=== PATIENT | female | born 1950 | race Caucasian/White ===

== ENCOUNTER 2017-11-03 14:35 | Emergency (ER) | payer MEDICARE ==
[~2017-11-03] VITALS: Ht 170.2 cm; Wt 63.6 kg
[~2017-11-03 14:35] MED LIST: AMLO5TAB4 PO; ATOR40TA3 PO; CARB-87 PO; LOSA1TAB39 PO; METF500T PO; MIRA50TA PO; RASA1TAB PO; ROPI4TAB3 PO
[2017-11-03 16:22] LABS: BASOPHILS % (AUTO) 0.5 % (0-1); EOSINOPHILS # (AUTO) 0.1 X10'3 (0-0.9); EOSINOPHILS % (AUTO) 2.2 % (0-6); HEMATOCRIT 40.1 % (35.0-45.0); LYMPHOCYTES # (AUTO) 1.5 X10'3 (1.1-4.8); LYMPHOCYTES % (AUTO) 30.1 % (21-51); MEAN CORPUSCULAR HEMOGLOBIN 31.2 PG (27.0-31.0); MEAN CORPUSCULAR HGB CONC 34.9 % (33.0-36.5); MEAN CORPUSCULAR VOLUME 89.5 FL (78-98); MONOCYTES # (AUTO) 0.4 X10'3 (0-0.9); MONOCYTES % (AUTO) 7.4 % (2-12); NEUTROPHILS % (AUTO) 59.8 % (42-75); PLATELET COUNT 223 X10'3 (140-440); RED BLOOD COUNT 4.47 X10'6 (4.20-5.60); RED CELL DISTRIBUTION WIDTH 13.1 % (11.5-14.5)
[2017-11-03 16:36] LABS: ALANINE AMINOTRANSFERASE 11 U/L (12-78); ALBUMIN 4.3 G/DL (3.4-5.0); ALBUMIN/GLOBULIN RATIO 1.2 (1.1-1.5); ALKALINE PHOSPHATASE 73 IU/L (46-116); ANION GAP 9 (8-16); ASPARTATE AMINO TRANSFERASE 21 U/L (10-37); BILIRUBIN,TOTAL 1.2 MG/DL (0.1-1.0); BLOOD UREA NITROGEN 21 MG/DL (7-18); BUN/CREATININE RATIO 24.1 (6.6-38.0); CALCIUM 9.2 MG/DL (8.5-10.1); CHLORIDE 102 MMOL/L (99-107); CREATININE 0.87 MG/DL (0.40-0.90); ETHANOL < 0.010 GM/DL (0.0-0.010); GLUCOSE 108 MG/DL (70-104); POTASSIUM 3.3 MMOL/L (3.5-5.1); SODIUM 142 MMOL/L (135-145); TOTAL CARBON DIOXIDE 31.3 MMOL/L (24-32); TOTAL PROTEIN 7.8 G/DL (6.4-8.2); eGFR 65 ML/MIN
[2017-11-03 16:59] LABS: CLARITY,URINE CLEAR (Clear); COLOR,URINE YELLOW (Yellow); GLUCOSE, URINE NEGATIVE (Neg); KETONES,URINE NEGATIVE (Neg); LEUKOCYTE ESTERASE ,URINE NEGATIVE (Neg); NITRITES, URINE NEGATIVE (Neg); OCCULT BLOOD,URINE NEGATIVE (Neg); PROTEIN,URINE NEGATIVE (Neg); UA COLLECTION TYPE STRAIGHT CATH; UROBILINOGEN,URINE 0.2 E.U/dL (0.2-1.0)
[2017-11-03 17:10] LABS: URINE AMPHETAMINE SCREEN NEGATIVE (Neg); URINE BARBITUATE SCREEN NEGATIVE (Neg); URINE BENZODIAZEPINES SCREEN NEGATIVE (Neg); URINE CANNABINOID SCREEN NEGATIVE (Neg); URINE COCAINE SCREEN NEGATIVE (Neg); URINE METHADONE SCREEN NEGATIVE (Neg); URINE OPIATE SCREEN NEGATIVE (Neg); URINE PHENCYCLIDINE SCREEN NEGATIVE (Neg)
[2017-11-03] MEDS ORDERED: LORazepam 1 MG tablet PO ONE (17:15)
[2017-11-03 21:14] VITALS: BP 163/63
[2017-11-03] MEDS ORDERED: ROTI1PAT10 TOP (21:33)
[2017-11-03] MEDS ORDERED: ATOR20TA66 PO (21:33)
[2017-11-03] MEDS ORDERED: METF500T PO (21:50)
[2017-11-03] MEDS ORDERED: CARB1TAB23 PO (21:50)
[2017-11-03] MEDS ORDERED: RASA1TAB PO (21:50)
== END 2017-11-03 21:15 | disposition home or self-care (01) ==
LOC: ER 14:36
DX: F41.9 Anxiety disorder, unspecified (principal); I10 Essential (primary) hypertension; E11.9 Type 2 diabetes mellitus without complications; Z88.1 Allergy status to other antibiotic agents; Z79.84 Long term (current) use of oral hypoglycemic drugs; Z79.899 Other long term (current) drug therapy
CPT/HCPCS: 36415; 80053; 80305; 80320; 81003; 85025; 99284

== ENCOUNTER 2017-11-03 20:05 | Inpatient (IN) | payer MEDICARE ==
[~2017-11-03] VITALS: Ht 167.6 cm
[2017-11-03] MEDS ORDERED: ROTI1PAT10 TOP (21:33)
[2017-11-03] MEDS ORDERED: ATOR20TA66 PO (21:33)
[2017-11-03] MEDS ORDERED: METF500T PO (21:50)
[2017-11-03] MEDS ORDERED: RASA1TAB PO (21:50)
[2017-11-03] MEDS ORDERED: CARB1TAB23 PO (21:50)
[2017-11-03 23:00] VITALS: BP 158/78
[2017-11-04] MEDS ORDERED: LORazepam 0.5 MG tablet PO ONE (01:00)
[2017-11-04] MEDS: metFORMIN 500mg tablet PO SCH ×2 (07:53→17:46)
[2017-11-04] MEDS: losartan 50mg tablet PO SCH (07:53)
[2017-11-04] MEDS: amLODIPine 5mg tablet PO SCH ×2 (07:53→20:03)
[2017-11-04] MEDS: HYDROchlorothiazide 25mg tablet PO SCH (07:53)
[2017-11-04 08:00] VITALS: BP 134/79
[2017-11-04] MEDS ORDERED: AZILECT 1 MG PO SCH (08:00)
[2017-11-04 08:08] LABS: HEMOGLOBIN A1C 5.9 % (4.5-6.2)
[2017-11-04 08:14] LABS: CHOL/HDL RATIO 1.8 (0.00-4.99); CHOLESTEROL 125 MG/DL (0-200); HDL CHOLESTEROL 70 MG/DL (35-60); LDL CHOLESTEROL 45 MG/DL (50-100); TRIGLYCERIDES 40 MG/DL (20-135)
[2017-11-04] MEDS: MIRABEGRON PO SCH (08:46)
[2017-11-04] MEDS: AZILECT 1 MG PO SCH (08:46)
[2017-11-04] MEDS: carbidoba-levodopa 25-100mg tablet PO SCH ×4 (08:46→20:04)
[2017-11-04] MEDS: NEUPRO 4 MG TOP SCH (08:47)
[2017-11-04 19:45] VITALS: BP 108/60
[2017-11-04] MEDS: temazepam 15mg capsule PO SCH (20:03)
[2017-11-04] MEDS: atorvastatin 20mg tablet PO SCH (20:03)
[2017-11-05] MEDS: AZILECT 1 MG PO SCH (07:58)
[2017-11-05] MEDS: MIRABEGRON PO SCH (07:58)
[2017-11-05] MEDS: HYDROchlorothiazide 25mg tablet PO SCH (07:59)
[2017-11-05] MEDS: carbidoba-levodopa 25-100mg tablet PO SCH ×4 (07:59→21:18)
[2017-11-05] MEDS: losartan 50mg tablet PO SCH (07:59)
[2017-11-05] MEDS: metFORMIN 500mg tablet PO SCH (07:59)
[2017-11-05 08:00] VITALS: BP 150/77
[2017-11-05] MEDS: NEUPRO 4 MG TOP SCH (08:03)
[2017-11-05] MEDS: amLODIPine 5mg tablet PO SCH (09:28)
[2017-11-05 19:45] VITALS: BP 72/48
[2017-11-05 20:50] VITALS: BP 140/63
[2017-11-05 20:52] VITALS: BP_SYST 120; BP_SYST 90; BP_DIAS 55; BP_DIAS 83
[2017-11-05] MEDS: temazepam 15mg capsule PO SCH (21:18)
[2017-11-05] MEDS: atorvastatin 20mg tablet PO SCH (21:18)
[2017-11-06 07:54] VITALS: BP 97/75
[2017-11-06 08:00] VITALS: BP_SYST 101; BP_SYST 127; BP_SYST 97; BP_DIAS 75
[2017-11-06] MEDS: losartan 50mg tablet PO SCH (08:00)
[2017-11-06] MEDS: MIRABEGRON PO SCH (08:14)
[2017-11-06] MEDS: NEUPRO 4 MG TOP SCH (08:14)
[2017-11-06] MEDS: AZILECT 1 MG PO SCH (08:14)
[2017-11-06] MEDS: carbidoba-levodopa 25-100mg tablet PO SCH ×3 (08:16→20:51)
[2017-11-06] MEDS: metFORMIN 500mg tablet PO SCH ×2 (08:17→17:14)
[2017-11-06] MEDS ORDERED: acetaminophen 325mg tablet PO PRN (19:20)
[2017-11-06] MEDS: acetaminophen 325mg tablet PO PRN (19:58)
[2017-11-06 20:09] VITALS: BP 125/73
[2017-11-06 20:30] VITALS: BP 161/78
[2017-11-06 20:31] VITALS: BP 147/69
[2017-11-06 20:32] VITALS: BP 104/69
[2017-11-06] MEDS: atorvastatin 20mg tablet PO SCH (20:51)
[2017-11-06] MEDS: temazepam 15mg capsule PO SCH (20:51)
[2017-11-07 08:00] VITALS: BP_SYST 112; BP_SYST 134; BP_SYST 147; BP_DIAS 70; BP_DIAS 72; BP_DIAS 75
[2017-11-07] MEDS: losartan 50mg tablet PO SCH (08:12)
[2017-11-07] MEDS: MIRABEGRON PO SCH (08:12)
[2017-11-07] MEDS: metFORMIN 500mg tablet PO SCH ×2 (08:12→17:37)
[2017-11-07] MEDS: AZILECT 1 MG PO SCH (08:13)
[2017-11-07] MEDS: carbidoba-levodopa 25-100mg tablet PO SCH ×3 (08:13→21:06)
[2017-11-07] MEDS: NEUPRO 4 MG TOP SCH (08:18)
[2017-11-07 08:20] VITALS: BP 147/79
[2017-11-07 14:32] VITALS: BP_SYST 112; BP_SYST 134; BP_SYST 147; BP_DIAS 70; BP_DIAS 72; BP_DIAS 75
[2017-11-07 14:34] VITALS: BP_SYST 112; BP_SYST 134; BP_SYST 147; BP_DIAS 70; BP_DIAS 72; BP_DIAS 75
[2017-11-07 19:00] VITALS: BP 158/69
[2017-11-07] MEDS: atorvastatin 20mg tablet PO SCH (21:06)
[2017-11-07] MEDS: temazepam 15mg capsule PO SCH (21:06)
[2017-11-07] MEDS: acetaminophen 325mg tablet PO PRN (21:06)
[2017-11-07] MEDS: mirtazapine 15mg tablet PO SCH ×2 (21:07→21:15)
[2017-11-08] MEDS: temazepam 15mg capsule PO SCH ×2 (03:14→20:36)
[2017-11-08 07:47] VITALS: BP 136/73
[2017-11-08 08:00] VITALS: BP 140/70
[2017-11-08] MEDS: carbidoba-levodopa 25-100mg tablet PO SCH ×3 (08:02→20:36)
[2017-11-08] MEDS: metFORMIN 500mg tablet PO SCH ×2 (08:02→17:19)
[2017-11-08] MEDS: losartan 50mg tablet PO SCH (08:02)
[2017-11-08] MEDS: AZILECT 1 MG PO SCH (08:03)
[2017-11-08] MEDS: MIRABEGRON PO SCH (08:03)
[2017-11-08] MEDS: NEUPRO 4 MG TOP SCH (08:50)
[2017-11-08 14:06] VITALS: BP_SYST 124; BP_SYST 140; BP_DIAS 70
[2017-11-08 14:07] VITALS: BP 100/70
[2017-11-08 19:00] VITALS: BP 130/60
[2017-11-08] MEDS: atorvastatin 20mg tablet PO SCH (20:36)
[2017-11-08] MEDS: mirtazapine 15mg tablet PO SCH (20:36)
[2017-11-09] MEDS: metFORMIN 500mg tablet PO SCH ×2 (07:54→17:23)
[2017-11-09] MEDS: losartan 50mg tablet PO SCH (07:54)
[2017-11-09] MEDS: carbidoba-levodopa 25-100mg tablet PO SCH ×3 (07:54→21:11)
[2017-11-09] MEDS: AZILECT 1 MG PO SCH (07:55)
[2017-11-09] MEDS: MIRABEGRON PO SCH (07:56)
[2017-11-09] MEDS: NEUPRO 4 MG TOP SCH (07:56)
[2017-11-09 08:00] VITALS: BP 127/67
[2017-11-09 19:00] VITALS: BP 142/55
[2017-11-09] MEDS: mirtazapine 15mg tablet PO SCH (21:11)
[2017-11-09] MEDS: atorvastatin 20mg tablet PO SCH (21:11)
[2017-11-09] MEDS: temazepam 15mg capsule PO SCH ×2 (21:12→22:16)
[2017-11-10 08:00] VITALS: BP 164/82
[2017-11-10] MEDS: carbidoba-levodopa 25-100mg tablet PO SCH ×3 (08:32→20:18)
[2017-11-10] MEDS: losartan 50mg tablet PO SCH (08:32)
[2017-11-10] MEDS: metFORMIN 500mg tablet PO SCH ×2 (08:32→17:51)
[2017-11-10] MEDS: MIRABEGRON PO SCH (08:34)
[2017-11-10] MEDS: NEUPRO 4 MG TOP SCH (08:34)
[2017-11-10] MEDS: AZILECT 1 MG PO SCH (08:34)
[2017-11-10] MEDS: atorvastatin 20mg tablet PO SCH (20:18)
[2017-11-10] MEDS: mirtazapine 15mg tablet PO SCH (20:18)
[2017-11-10] MEDS: temazepam 15mg capsule PO SCH (20:20)
[2017-11-10 22:14] VITALS: BP 144/81
[2017-11-10 22:17] VITALS: BP 144/81
[2017-11-11 08:00] VITALS: BP 122/74
[2017-11-11] MEDS: NEUPRO 4 MG TOP SCH (08:15)
[2017-11-11] MEDS: MIRABEGRON PO SCH (08:16)
[2017-11-11] MEDS: metFORMIN 500mg tablet PO SCH (08:16)
[2017-11-11] MEDS: AZILECT 1 MG PO SCH (08:16)
[2017-11-11] MEDS: carbidoba-levodopa 25-100mg tablet PO SCH ×2 (08:16→12:08)
[2017-11-11] MEDS: losartan 50mg tablet PO SCH (08:16)
[2017-11-11] MEDS ORDERED: LOSA100T28 PO (12:57)
[2017-11-11] MEDS ORDERED: CARB1TAB36 PO (12:57)
[2017-11-11] MEDS ORDERED: MIRT15TA8 PO (12:57)
[2017-11-11] MEDS ORDERED: TEMA15CA PO (12:57)
== END 2017-11-11 15:00 | disposition home or self-care (01) | DRG 885 ==
LOC: ADULT MH 20:05
PROVIDERS: ADMIT Psychiatry & Neurology Psychiatry; ATTEND Psychiatry & Neurology Psychiatry
DX: F29 Unspecified psychosis not due to a substance or known physiological condition (principal); F32.1 Major depressive disorder, single episode, moderate; G20 Parkinson's disease; E11.9 Type 2 diabetes mellitus without complications; F41.9 Anxiety disorder, unspecified; E78.00 Pure hypercholesterolemia, unspecified; G47.09 Other insomnia; G47.20 Circadian rhythm sleep disorder, unspecified type; I10 Essential (primary) hypertension; Z90.710 Acquired absence of both cervix and uterus; Z82.0 Family history of epilepsy and other diseases of the nervous system
CPT/HCPCS: 36415; 80061; 82948; 83036; 87070; 97110; 97116; 97161; 97530; 99285